=== PATIENT | female | born 1955 | race Caucasian/White ===

== ENCOUNTER 2017-07-10 16:31 | Emergency (ER) | payer OTHER ==
[~2017-07-10] VITALS: Ht 154.9 cm; Wt 100.0 kg
[~2017-07-10 16:31] MED LIST: ASPI81 PO; LISI-661 PO; QUET400T3 PO
[2017-07-10] MEDS ORDERED: INSLAN SQ (17:01)
[2017-07-10] MEDS ORDERED: INSU100V SQ (17:01)
[2017-07-10] MEDS ORDERED: METF500T4 PO (17:01)
[2017-07-10] MEDS ORDERED: LISI-660 PO (17:04)
[2017-07-10 17:08] LABS: GLUCOSE,POINT OF CARE 248 MG/DL (70-110)
[2017-07-10 18:35] VITALS: BP 142/76
== END 2017-07-10 20:04 | disposition home or self-care (01) ==
LOC: EMS 16:31
DX: S27.818A Other injury of esophagus (thoracic part), initial encounter (principal); E11.9 Type 2 diabetes mellitus without complications; E78.00 Pure hypercholesterolemia, unspecified; I10 Essential (primary) hypertension; Z79.4 Long term (current) use of insulin; X58.XXXA Exposure to other specified factors, initial encounter; Y93.89 Activity, other specified; Y92.89 Other specified places as the place of occurrence of the external cause; Y99.8 Other external cause status
CPT/HCPCS: 70490; 82962; 99284

== ENCOUNTER 2018-12-29 14:25 | Emergency (ER) | payer OTHER ==
[~2018-12-29] VITALS: Ht 157.5 cm; Wt 113.6 kg
[~2018-12-29 14:25] MED LIST changes: +INSLAN SQ; +INSU100V SQ; +LISI-660 PO; -LISI-661 PO; +METF-960 PO; -QUET400T3 PO; +QUET400T5 PO
[2018-12-29 14:44] LABS: GLUCOSE,POINT OF CARE 304 MG/DL (70-110)
[2018-12-29 15:12] LABS: BASOPHILS % (AUTO) 0.5 % (0.0-2.0); EOSINOPHILS % (AUTO) 4.2 % (1.0-6.0); HEMATOCRIT 36.4 % (36-46); HEMOGLOBIN 11.9 g/dL (12.0-16.0); LYMPHOCYTES # (AUTO) 2.2 K/uL (1.0-4.8); LYMPHOCYTES % (AUTO) 27.8 % (22.0-44.0); MEAN CORPUSCULAR HEMOGLOBIN 27.5 pg (26.0-34.0); MEAN CORPUSCULAR HGB CONC 32.6 G/dL (31.0-37.0); MEAN CORPUSCULAR VOLUME 84 fL (80-100); MONOCYTES # (AUTO) 0.5 K/uL (0.1-1.0); MONOCYTES % (AUTO) 5.9 % (2.0-9.0); NEUTROPHILS # (AUTO) 4.9 K/uL (1.8-7.7); NEUTROPHILS % (AUTO) 61.6 % (40.0-70.0); PLATELET COUNT (AUTO) 255 K/uL (150-450); RED BLOOD CELL COUNT(AUTO) 4.32 MIL/uL (4.00-5.20); RED CELL DISTRIBUTION WIDTH 14.6 % (11.5-14.5)
[2018-12-29 15:20] LABS: CALCIUM, TOTAL 9.9 mg/dL (8.8-10.5); CREATININE 1.29 mg/dL (0.60-1.30); POTASSIUM 3.8 mmol/L (3.5-5.1)
[2018-12-29 15:26] LABS: ALBUMIN 3.6 g/dL (3.4-5.0); BILIRUBIN,TOTAL 0.4 mg/dL (0.1-1.0); TOTAL PROTEIN, SERUM 7.6 g/dL (6.4-8.2)
[2018-12-29 15:33] LABS: APPEARANCE,URINE CLEAR (CLEAR); BILIRUBIN,URINE NEGATIVE (NEGATIVE); GLUCOSE, URINE (UA) >=1000 mg/dL (NEGATIVE); KETONES,URINE NEGATIVE (NEGATIVE); LEUKOCYTE ESTERASE ,URINE MODERATE (NEGATIVE); NITRATE,URINE NEGATIVE (NEGATIVE); OCCULT BLOOD,URINE NEGATIVE (NEGATIVE); PH,URINE 6.5 (5.0-8.0); PROTEIN,URINE NEGATIVE (NEGATIVE)
[2018-12-29 15:42] LABS: BACTERIA,URINE None Seen /HPF (None Seen); RBC,URINE 0-2 /HPF (0-2); SQUAMOUS EPITHELIAL CELL,UR Few /LPF (None Seen)
[2018-12-29] MEDS ORDERED: INSULIN REGULAR, HUMAN 100 UNITS/ML SQ ONE (16:45)
[2018-12-29 17:00] VITALS: BP 139/71
[2018-12-29 17:19] LABS: GLUCOSE,POINT OF CARE 384 MG/DL (70-110)
== END 2018-12-29 17:26 | disposition home or self-care (01) ==
LOC: EMS 14:26
DX: E11.65 Type 2 diabetes mellitus with hyperglycemia (principal); R05 Cough; E78.00 Pure hypercholesterolemia, unspecified; I10 Essential (primary) hypertension; F41.9 Anxiety disorder, unspecified; F32.9 Major depressive disorder, single episode, unspecified; Z79.899 Other long term (current) drug therapy; Z79.4 Long term (current) use of insulin; Z90.49 Acquired absence of other specified parts of digestive tract
CPT/HCPCS: 36415; 71045; 80053; 81001; 82962; 85025; 87077; 87086; 87186; 93005; 96372; 99284; J1815

== ENCOUNTER 2022-10-06 20:46 | Emergency (ER) | payer MEDICARE, MEDICAID ==
[~2022-10-06] VITALS: Ht 157.5 cm; Wt 113.0 kg
[~2022-10-06 20:46] MED LIST changes: +ASPI-1450 PO; -ASPI81 PO; -LISI-660 PO; +LISI-892 PO; +METF-1211 PO; -METF-960 PO
[2022-10-06 21:29] VITALS: BP 139/73
[2022-10-06] MEDS ORDERED: POLY238P PO (22:09)
[2022-10-06] MEDS ORDERED: MAGNESIUM HYDROXIDE SUSPENSION 30 ML UDCUP PO ONE (22:15)
== END 2022-10-06 22:51 | disposition home or self-care (01) ==
LOC: EMS 20:46
DX: K59.00 Constipation, unspecified (principal); K64.4 Residual hemorrhoidal skin tags; F41.9 Anxiety disorder, unspecified; F32.A Depression, unspecified; E11.9 Type 2 diabetes mellitus without complications; E78.00 Pure hypercholesterolemia, unspecified; I10 Essential (primary) hypertension; Z90.49 Acquired absence of other specified parts of digestive tract; Z98.890 Other specified postprocedural states
CPT/HCPCS: 82962; 99282

== ENCOUNTER 2024-02-05 04:50 | Emergency (ER) | payer MEDICARE, MEDICAID ==
[~2024-02-05] VITALS: Ht 157.5 cm; Wt 85.0 kg
[~2024-02-05 04:50] MED LIST changes: +POLY238P PO
[2024-02-05 05:01] VITALS: TEMP 97.8
[2024-02-05] MEDS: ONDANSETRON HCL 4 MG/2 ML VIAL IVP ONE (05:44)
[2024-02-05 05:55] LABS: BASOPHILS % (AUTO) 0.3 % (0.0-2.0); EOSINOPHILS % (AUTO) 3.1 % (1.0-6.0); HEMATOCRIT 37.5 % (36-46); HEMOGLOBIN 12.4 g/dL (12.0-16.0); LYMPHOCYTES # (AUTO) 2.6 K/uL (1.0-4.8); LYMPHOCYTES % (AUTO) 25.4 % (22.0-44.0); MEAN CORPUSCULAR HEMOGLOBIN 28.4 pg (26.0-34.0); MEAN CORPUSCULAR HGB CONC 33.2 G/dL (31.0-37.0); MEAN CORPUSCULAR VOLUME 86 fL (80-100); MONOCYTES # (AUTO) 0.7 K/uL (0.1-1.0); MONOCYTES % (AUTO) 6.8 % (2.0-9.0); NEUTROPHILS # (AUTO) 6.7 K/uL (1.8-7.7); NEUTROPHILS % (AUTO) 64.4 % (40.0-70.0); PLATELET COUNT (AUTO) 224 K/uL (150-450); RED BLOOD CELL COUNT(AUTO) 4.39 MIL/uL (4.00-5.20); RED CELL DISTRIBUTION WIDTH 15.5 % (11.5-14.5); WHITE BLOOD COUNT (AUTO) 10.4 K/uL (4.5-11.0)
[2024-02-05 06:05] LABS: CALCIUM, TOTAL 9.3 mg/dL (8.8-10.5); CREATININE 1.41 mg/dL (0.60-1.30); POTASSIUM 3.9 mmol/L (3.5-5.1)
[2024-02-05 06:11] LABS: ALBUMIN 3.5 g/dL (3.4-5.0); BILIRUBIN,TOTAL 0.4 mg/dL (0.1-1.0); TOTAL PROTEIN, SERUM 7.8 g/dL (6.4-8.2)
[2024-02-05] MEDS: ACETAMINOPHEN 500 MG TABLET PO ONE (06:24)
[2024-02-05] MEDS: SODIUM CHLORIDE 0.9% 1,000 ML IV ONE (06:24)
[2024-02-05] MEDS: FAMOTIDINE 20 MG/2 ML VIAL IVP ONE (06:25)
[2024-02-05 07:09] LABS: COVID AG,FIA SOURCE NASAL SWAB
[2024-02-05] MEDS ORDERED: IOHEXOL 350 MG/ML 100 ML VIAL ONE (07:23)
[2024-02-05] MEDS ORDERED: SODIUM CHLORIDE 0.9% 100 ML ONE (07:23)
[2024-02-05 07:45] LABS: SARS-COV2 (COVID) ANTIGEN,FIA Negative (Negative)
[2024-02-05 09:07] LABS: APPEARANCE,URINE CLEAR (CLEAR); BILIRUBIN,URINE NEGATIVE (NEGATIVE); COLOR,URINE LIGHT YELLOW (YELLOW); GLUCOSE, URINE (UA) NEGATIVE (NEGATIVE); KETONES,URINE NEGATIVE (NEGATIVE); LEUKOCYTE ESTERASE ,URINE MODERATE (NEGATIVE); NITRATE,URINE NEGATIVE (NEGATIVE); OCCULT BLOOD,URINE NEGATIVE (NEGATIVE); PROTEIN,URINE NEGATIVE (NEGATIVE); UROBILINOGEN,URINE <=1.0 mg/dL (<=1.0)
[2024-02-05 09:09] LABS: SPECIFIC GRAVITIY, URINE > 1.030 (1.003-1.030)
[2024-02-05 09:12] LABS: BACTERIA,URINE None Seen /HPF (None Seen); RBC,URINE None Seen /HPF (0-2); SQUAMOUS EPITHELIAL CELL,UR Rare /LPF (None Seen)
[2024-02-05 10:23] LABS: INFLUENZA A-RTPCR,COMBO NEGATIVE (NEGATIVE); INFLUENZA B-RTPCR,COMBO NEGATIVE (NEGATIVE); RESPIRATORY SYNCYTIAL VRS-PCR NEGATIVE (NEGATIVE); SARS COVID19 RTPCR, COMBO NEGATIVE (NEGATIVE)
[2024-02-05] MEDS ORDERED: ACET-3385 PO (13:57)
[2024-02-05] MEDS ORDERED: DEXTROSE 50%-WATER 25 GM/50 ML SYRINGE IVP ONE (14:13)
[2024-02-05 15:03] VITALS: BP 110/43; PULSE 72; RESP 16
== END 2024-02-05 16:31 | disposition home or self-care (01) ==
LOC: EMS 04:52
DX: R10.9 Unspecified abdominal pain (principal); E11.9 Type 2 diabetes mellitus without complications; N18.9 Chronic kidney disease, unspecified; R74.8 Abnormal levels of other serum enzymes; L40.9 Psoriasis, unspecified; E78.00 Pure hypercholesterolemia, unspecified; D64.9 Anemia, unspecified; F32.A Depression, unspecified; F41.9 Anxiety disorder, unspecified; I10 Essential (primary) hypertension; Z90.49 Acquired absence of other specified parts of digestive tract; Z20.822 Contact with and (suspected) exposure to COVID-19; Z98.890 Other specified postprocedural states
CPT/HCPCS: 99285; 74177; 96374; 0241U; 96361; 96375; 80053; 81001; 82962; 83690; 85025; 36415; 87426; J3490; J2405; Q9967; J7030; J7050

== ENCOUNTER 2024-05-01 17:35 | Emergency (ER) | payer MEDICARE, MEDICAID ==
[~2024-05-01] VITALS: Ht 157.5 cm; Wt 86.4 kg
[~2024-05-01 17:35] MED LIST changes: +ACET-3385 PO
[2024-05-01] MEDS ORDERED: FERR325T23 PO (17:45)
[2024-05-01] MEDS ORDERED: FINE10TA PO (17:45)
[2024-05-01] MEDS ORDERED: OMEG100015 PO (17:45)
[2024-05-01] MEDS ORDERED: MELA5TAB40 PO (17:45)
[2024-05-01] MEDS ORDERED: LOSA-381 PO (17:45)
[2024-05-01] MEDS ORDERED: METF-446 PO (17:45)
[2024-05-01] MEDS ORDERED: QUET200T30 PO (17:45)
[2024-05-01] MEDS ORDERED: TIRZ15PE SQ (17:45)
[2024-05-01] MEDS ORDERED: INSU300I SQ ×2 (17:45)
[2024-05-01] MEDS ORDERED: ATOR40TA71 PO (17:45)
[2024-05-01] MEDS ORDERED: CHOL200059 PO (17:45)
[2024-05-01] MEDS ORDERED: PARO-37 PO (17:45)
[2024-05-01 18:01] LABS: BASOPHILS % (AUTO) 0.2 % (0.0-2.0); EOSINOPHILS % (AUTO) 3.3 % (1.0-6.0); HEMATOCRIT 34.6 % (36-46); HEMOGLOBIN 11.4 g/dL (12.0-16.0); LYMPHOCYTES # (AUTO) 2.4 K/uL (1.0-4.8); LYMPHOCYTES % (AUTO) 35.6 % (22.0-44.0); MEAN CORPUSCULAR HEMOGLOBIN 28.8 pg (26.0-34.0); MEAN CORPUSCULAR VOLUME 87 fL (80-100); MONOCYTES # (AUTO) 0.4 K/uL (0.1-1.0); MONOCYTES % (AUTO) 6.3 % (2.0-9.0); NEUTROPHILS # (AUTO) 3.6 K/uL (1.8-7.7); NEUTROPHILS % (AUTO) 54.6 % (40.0-70.0); PLATELET COUNT (AUTO) 186 K/uL (150-450); RED BLOOD CELL COUNT(AUTO) 3.98 MIL/uL (4.00-5.20); RED CELL DISTRIBUTION WIDTH 15.2 % (11.5-14.5); WHITE BLOOD COUNT (AUTO) 6.6 K/uL (4.5-11.0)
[2024-05-01 18:11] LABS: CALCIUM, TOTAL 9.3 mg/dL (8.8-10.5); CREATININE 1.2 mg/dL (0.60-1.30); POTASSIUM 3.8 mmol/L (3.5-5.1)
[2024-05-01 18:17] LABS: ALBUMIN 3.1 g/dL (3.4-5.0); BILIRUBIN,TOTAL 0.4 mg/dL (0.1-1.0); TOTAL PROTEIN, SERUM 7.2 g/dL (6.4-8.2)
[2024-05-01 18:19] LABS: TROPONIN I-HIGH SENSITIVITY 5 ng/L (<51)
[2024-05-01 20:52] LABS: APPEARANCE,URINE HAZY (CLEAR); BILIRUBIN,URINE NEGATIVE (NEGATIVE); COLOR,URINE YELLOW (YELLOW); GLUCOSE, URINE (UA) NEGATIVE (NEGATIVE); KETONES,URINE NEGATIVE (NEGATIVE); LEUKOCYTE ESTERASE ,URINE MODERATE (NEGATIVE); NITRATE,URINE NEGATIVE (NEGATIVE); OCCULT BLOOD,URINE NEGATIVE (NEGATIVE); PH,URINE 7.5 (5.0-8.0); PROTEIN,URINE TRACE mg/dL (NEGATIVE); SPECIFIC GRAVITIY, URINE 1.017 (1.003-1.030); UROBILINOGEN,URINE <=1.0 mg/dL (<=1.0)
[2024-05-01 20:59] LABS: BACTERIA,URINE Rare /HPF (None Seen); RBC,URINE None Seen /HPF (0-2); YEAST,URINE Few /HPF (None Seen)
[2024-05-01] MEDS: SODIUM CHLORIDE 0.9% 1,000 ML IV ONE (20:59)
[2024-05-01 21:00] LABS: SQUAMOUS EPITHELIAL CELL,UR Few /LPF (None Seen)
[2024-05-01] MEDS: CefTRIAXone 1 GM/DEXTROSE 50 ML IV ONE (21:20)
[2024-05-01] MEDS ORDERED: CEPH-558 PO (22:01)
[2024-05-01 22:30] VITALS: BP 127/69; PULSE 81; RESP 16; TEMP 97.3
== END 2024-05-01 22:55 | disposition home or self-care (01) ==
LOC: EMS 17:35
DX: N39.0 Urinary tract infection, site not specified (principal); R42 Dizziness and giddiness; F41.9 Anxiety disorder, unspecified; F32.A Depression, unspecified; E11.9 Type 2 diabetes mellitus without complications; E78.00 Pure hypercholesterolemia, unspecified; I10 Essential (primary) hypertension; Z90.49 Acquired absence of other specified parts of digestive tract; Z98.890 Other specified postprocedural states
CPT/HCPCS: 99285; 96365; 71045; 80053; 81001; 82962; 84484; 85025; 36415; 87086; 87186; 93005; J0696

== ENCOUNTER 2024-06-20 13:35 | Emergency (ER) | payer MEDICARE, MEDICAID ==
[~2024-06-20] VITALS: Ht 157.5 cm; Wt 81.8 kg
[~2024-06-20 13:35] MED LIST changes: -ACET-3385 PO; +ATOR40TA71 PO; +CEPH-558 PO; +CHOL200059 PO; +FERR325T23 PO; +FINE10TA PO; -INSLAN SQ; -INSU100V SQ; +INSU300I SQ; -LISI-892 PO; +LOSA-381 PO; +MELA5TAB40 PO; -METF-1211 PO; +METF-446 PO; +PARO-37 PO; -POLY238P PO; +QUET200T30 PO; -QUET400T5 PO; +TIRZ15PE SQ; +[UNRECOGNIZED DRUG - CODE] PO
[2024-06-20 13:40] VITALS: TEMP 98
[2024-06-20] MEDS: PERTUSS(ACELL),DIPH,TET/PF 0.5 ML SYRINGE [ADULT] IM. ONE (14:45)
[2024-06-20] MEDS ORDERED: SENN-374 PO (16:39)
[2024-06-20] MEDS ORDERED: BETA15CR46 TP (16:39)
[2024-06-20] MEDS ORDERED: CALC60CR6 TP (16:39)
[2024-06-20] MEDS ORDERED: KETO120S13 TP (16:39)
[2024-06-20] MEDS ORDERED: ASCO500T10 PO (16:39)
[2024-06-20] MEDS: OxyCODONE HCL 5 MG IR TABLET PO ONE (17:21)
[2024-06-20 17:30] VITALS: BP 126/71; PULSE 73; RESP 16; O2SAT 100
== END 2024-06-20 21:29 | disposition home or self-care (01) ==
LOC: EMS 13:40
DX: S62.615A Displaced fracture of proximal phalanx of left ring finger, initial encounter for closed fracture (principal); S00.83XA Contusion of other part of head, initial encounter; E11.9 Type 2 diabetes mellitus without complications; I10 Essential (primary) hypertension; W01.0XXA Fall on same level from slipping, tripping and stumbling without subsequent striking against object, initial encounter; Y93.89 Activity, other specified; Y92.89 Other specified places as the place of occurrence of the external cause; Y99.8 Other external cause status
CPT/HCPCS: 70450; 70486; 72125; 90471; 90715; 99285

== ENCOUNTER → 2024-08-16 | Emergency (ER) | payer MEDICARE, MEDICAID ==
[~2024-08-16] VITALS: Ht 154.9 cm; Wt 72.7 kg
[~2024-08-16] MED LIST changes: +ASCO500T10 PO; +BETA15CR46 TP; +CALC60CR6 TP; -CEPH-558 PO; +DOCU-385 PO; +IOHEXOL 350 MG/ML 100 ML VIAL ONE; +KETO120S13 TP; +SENN-374 PO; +SODIUM CHLORIDE 0.9% 100 ML ONE
[2024-08-16 15:31] LABS: GLUCOMETER DEV NAME(LOC) ER.7; GLUCOSE,POINT OF CARE 359 MG/DL (70-110)
[2024-08-16 16:00] LABS: BASOPHILS % (AUTO) 0.3 % (0.0-2.0); EOSINOPHILS % (AUTO) 4.9 % (1.0-6.0); HEMOGLOBIN 11.9 g/dL (12.0-16.0); LYMPHOCYTES # (AUTO) 1.5 K/uL (1.0-4.8); LYMPHOCYTES % (AUTO) 22.8 % (22.0-44.0); MEAN CORPUSCULAR HEMOGLOBIN 29.9 pg (26.0-34.0); MEAN CORPUSCULAR VOLUME 91 fL (80-100); MONOCYTES # (AUTO) 0.3 K/uL (0.1-1.0); MONOCYTES % (AUTO) 5.2 % (2.0-9.0); NEUTROPHILS # (AUTO) 4.5 K/uL (1.8-7.7); NEUTROPHILS % (AUTO) 66.8 % (40.0-70.0); PLATELET COUNT (AUTO) 206 K/uL (150-450); RED BLOOD CELL COUNT(AUTO) 3.97 MIL/uL (4.00-5.20); RED CELL DISTRIBUTION WIDTH 14.8 % (11.5-14.5); WHITE BLOOD COUNT (AUTO) 6.7 K/uL (4.5-11.0)
[2024-08-16 16:09] LABS: CALCIUM, TOTAL 9.8 mg/dL (8.8-10.5); CREATININE 1.39 mg/dL (0.60-1.30); POTASSIUM 5.5 mmol/L (3.5-5.1)
[2024-08-16 16:15] LABS: ALBUMIN 3.3 g/dL (3.4-5.0); BILIRUBIN,DIRECT 0.1 mg/dL (0.00-0.20); BILIRUBIN,TOTAL 0.4 mg/dL (0.1-1.0); TOTAL PROTEIN, SERUM 7.4 g/dL (6.4-8.2)
[2024-08-16] MEDS: SODIUM CHLORIDE 0.9% 1,000 ML IV ONE (17:38)
[2024-08-16] MEDS: ACETAMINOPHEN 500 MG TABLET PO ONE (17:39)
[2024-08-16] MEDS: KETOROLAC TROMETHAMINE 30 MG/ML VIAL IVP ONE (17:39)
[2024-08-16 18:29] LABS: APPEARANCE,URINE CLEAR (CLEAR); BILIRUBIN,URINE NEGATIVE (NEGATIVE); COLOR,URINE YELLOW (YELLOW); GLUCOSE, URINE (UA) >=1000 mg/dL (NEGATIVE); KETONES,URINE NEGATIVE (NEGATIVE); LEUKOCYTE ESTERASE ,URINE NEGATIVE (NEGATIVE); NITRATE,URINE NEGATIVE (NEGATIVE); OCCULT BLOOD,URINE NEGATIVE (NEGATIVE); PROTEIN,URINE TRACE mg/dL (NEGATIVE); SPECIFIC GRAVITIY, URINE 1.019 (1.003-1.030); UROBILINOGEN,URINE <=1.0 mg/dL (<=1.0)
[2024-08-16 18:30] VITALS: TEMP 97.9
[2024-08-16 18:42] LABS: BACTERIA,URINE Few /HPF (None Seen); RBC,URINE 0-2 /HPF (0-2); SQUAMOUS EPITHELIAL CELL,UR Few /LPF (None Seen); WBC,URINE 0-2 /HPF (0-5)
[2024-08-16] MEDS: SODIUM PHOSPHATE,MONO-DIBASIC 133 ML ENEMA PR ONE (20:17)
[2024-08-16] MEDS: DOCUSATE SODIUM 100 MG CAPSULE PO ONE (20:17)
[2024-08-16 20:26] VITALS: BP 133/76; PULSE 69; RESP 18; O2SAT 98
[2024-08-16 21:01] LABS: GLUCOMETER DEV NAME(LOC) ERT.6; GLUCOSE,POINT OF CARE 148 MG/DL (70-110)
== END | disposition home or self-care (01) ==
LOC: EMS 15:07
DX: K59.00 Constipation, unspecified (principal); E11.9 Type 2 diabetes mellitus without complications; I10 Essential (primary) hypertension; E78.00 Pure hypercholesterolemia, unspecified; F41.9 Anxiety disorder, unspecified; F32.A Depression, unspecified; Z79.4 Long term (current) use of insulin; Z79.82 Long term (current) use of aspirin; Z79.85 Long-term (current) use of injectable non-insulin antidiabetic drugs; Z90.49 Acquired absence of other specified parts of digestive tract; Z79.899 Other long term (current) drug therapy
CPT/HCPCS: 99285; 74177; 96374; 96361; 80048; 80076; 81001; 82962; 83690; 85025; 36415; Q9967; J1885; J7030; J7050

== ENCOUNTER 2025-06-13 11:28 | Emergency (ER) | payer MEDICARE, MEDICAID ==
[~2025-06-13] VITALS: Ht 154.9 cm; Wt 58.6 kg
[~2025-06-13 11:28] MED LIST changes: -IOHEXOL 350 MG/ML 100 ML VIAL ONE; -SODIUM CHLORIDE 0.9% 100 ML ONE
[2025-06-13 11:33] VITALS: TEMP 97.6
[2025-06-13 12:17] LABS: PLATELET COUNT (AUTO) 203 K/uL (150-450); RED BLOOD CELL COUNT(AUTO) 4.30 MIL/uL (4.00-5.20); RED CELL DISTRIBUTION WIDTH 14.7 % (11.5-14.5); WHITE BLOOD COUNT (AUTO) 7.4 K/uL (4.5-11.0)
[2025-06-13 12:21] LABS: CALCIUM, TOTAL 9.4 mg/dL (8.8-10.5); CREATININE 1.07 mg/dL (0.60-1.30); GLOMERULAR FILTR. RATE CALC 51.0 mL/min (>60); GLUCOSE,RANDOM 102.0 mg/dL (70-110); SODIUM SERUM 141.0 mmol/L (136-145); UREA NITROGEN, BLOOD 14.0 mg/dL (7-18)
[2025-06-13 14:02] LABS: TROPONIN I-HIGH SENSITIVITY 4 ng/L (<51)
[2025-06-13 15:41] VITALS: BP 116/76; PULSE 85; RESP 16; O2SAT 99
== END 2025-06-13 15:49 | disposition home or self-care (01) ==
LOC: EMS 11:36
DX: E11.649 Type 2 diabetes mellitus with hypoglycemia without coma (principal); R53.1 Weakness; I10 Essential (primary) hypertension; E78.00 Pure hypercholesterolemia, unspecified; F32.A Depression, unspecified; F41.9 Anxiety disorder, unspecified; Z79.4 Long term (current) use of insulin; Z79.82 Long term (current) use of aspirin; Z79.85 Long-term (current) use of injectable non-insulin antidiabetic drugs; Z90.49 Acquired absence of other specified parts of digestive tract; Z79.899 Other long term (current) drug therapy
CPT/HCPCS: 80048; 82962; 84484; 85025; 93005; 99284

== ENCOUNTER 2025-07-19 16:45 | Emergency (ER) | payer MEDICARE, MEDICAID ==
[~2025-07-19] VITALS: Ht 152.4 cm; Wt 68.2 kg
[2025-07-19 17:00] VITALS: TEMP 97.9
[2025-07-19 17:57] LABS: PLATELET COUNT (AUTO) 201 K/uL (150-450); RED BLOOD CELL COUNT(AUTO) 4.00 MIL/uL (4.00-5.20); RED CELL DISTRIBUTION WIDTH 14.5 % (11.5-14.5); WHITE BLOOD COUNT (AUTO) 7.3 K/uL (4.5-11.0)
[2025-07-19 18:04] LABS: CALCIUM, TOTAL 9.1 mg/dL (8.8-10.5); CREATININE 1.45 mg/dL (0.60-1.30); GLOMERULAR FILTR. RATE CALC 36 mL/min (>60); GLUCOSE,RANDOM 101 mg/dL (70-110); SODIUM SERUM 137 mmol/L (136-145); UREA NITROGEN, BLOOD 22 mg/dL (7-18)
[2025-07-19 18:12] LABS: TROPONIN I-HIGH SENSITIVITY 6 ng/L (<51)
[2025-07-19] MEDS ORDERED: MECL-134 PO (20:20)
[2025-07-19 20:30] VITALS: BP 116/52; PULSE 71; RESP 15; O2SAT 98
== END 2025-07-19 20:55 | disposition home or self-care (01) ==
LOC: EMS 16:50
DX: R42 Dizziness and giddiness (principal); F41.9 Anxiety disorder, unspecified; E11.9 Type 2 diabetes mellitus without complications; E78.00 Pure hypercholesterolemia, unspecified; F32.A Depression, unspecified; I10 Essential (primary) hypertension; Z90.49 Acquired absence of other specified parts of digestive tract; Z79.85 Long-term (current) use of injectable non-insulin antidiabetic drugs; Z79.899 Other long term (current) drug therapy
CPT/HCPCS: 80048; 82962; 83690; 84484; 85025; 93005; 99284